=== PATIENT | female | born 1980 | race Native Hawaiian/Other Pacific Islander ===

== ENCOUNTER 2020-09-03 08:09 | Outpatient (CLI) | payer OTHER ==
[2020-09-03 10:18] LABS: PLATELET COUNT 364 K/uL (152-353)
[2020-09-03 10:24] LABS: POTASSIUM 3.7 mmol/L (3.6-5.2)
[2020-09-03 10:48] VITALS: BP 137/80; TEMP 97.4
== END 2020-09-03 13:01 | disposition home or self-care (01) ==
LOC: INF 08:09
PROVIDERS: ATTEND Internal Medicine Endocrinology, Diabetes & Metabolism
DX: E86.0 Dehydration (principal)
CPT/HCPCS: 36591; 80053; 85027; 96360; 96361

== ENCOUNTER 2020-11-06 16:45 | Outpatient (CLI) | payer OTHER | END 2020-11-06 22:25 | disposition home or self-care (01) | LOC: CT 16:45 | PROVIDERS: ATTEND Nurse Practitioner Family | DX: R30.0 Dysuria (principal); R10.9 Unspecified abdominal pain ==